=== PATIENT | female | born 1995 | race Caucasian/White ===

== ENCOUNTER 2017-07-28 02:55 | Emergency (ER) | payer SELFPAY ==
[2017-07-28] VITALS (12 sets, daily range): BP systolic 98–118; BP diastolic 44–72
[~2017-07-28] VITALS: Ht 165.1 cm; Wt 52.2 kg
--- NOTE | 2017-07-28 03:06 | Emergency Room Report ---
History of Present Illness General Chief Complaint: Altered Level of Consciousness Source: EMS (Reid Diggs DO) Present Illness HPI Patient was brought to the ER with agitation and bizarre behavior Patient is not answering any questions Patient continues to ramble including discussions regarding her family her mom Asking people to fetch her water And continues to talk about unassociated events History of present illness is significantly limited Patient was apparently at a convenience store also doing similar activity for about one hour after Police Department had picked her up patient continued to act erratic and was brought to the ER (Reid Diggs DO) Allergies: Coded Allergies: AVOCADO (Verified Allergy, Unknown, 07/28/17) BANANA (Verified Allergy, Unknown, 07/28/17) Patient History Limited by: medical condition Past Medical History: see triage record Pertinent Family History: unable to obtain Last Menstrual Period: unknown Now: No - unknown : 0 Para: 0 Reviewed Nursing Documentation: PMH: Agreed; PSxH: Agreed (Reid Diggs DO) Nursing Documentation-PMH Past Medical History Deferred: Pt Cognitively Impaired (Reid Diggs DO) Review of Systems All Other Systems: limited - Other than the ones mentioned in the history of present illness all others are reviewed however they do stay limited due to the patient's mental status (Reid Diggs DO) Physical Exam Vital Signs Date Time Temp Pulse Resp B/P (MAP) Pulse Ox O2 Delivery O2 Flow Rate FiO2 07/28/17 02:43 98.1 111 15 112/65 98 Room Air 98.1 Sp02 EP Interpretation: reviewed, normal General Appearance: mild distress Head: normocephalic, atraumatic Eyes: bilateral eye PERRL, bilateral eye EOMI ENT: hearing grossly normal, normal pharynx Neck: full range of motion, supple Respiratory: lungs clear, normal breath sounds Cardiovascular #1: regular rate, rhythm, no edema Gastrointestinal: non tender, soft Musculoskeletal: normal inspection Neurologic: alert, responsive, motor strength/tone normal Psychiatric: other - Patient appears acutely psychotic rambling thought Skin: normal color, no rash Lymphatic: no adenopathy (Reid Diggs DO) Medical Decision Making Diagnostic Impression: Primary Impression: Altered level of consciousness ER Course Multiple differentials considered Including but not limited to psychosis, alcohol, drug, psychiatric related Patient had blood work initiated Marijuana is positive given the patient's initial presentation Given the unknown past medical history along with her speech patient will have further psychiatric evaluation Labs Test 07/28/17 03:20 White Blood Count 8.0 K/UL (4.8-10.8) Red Blood Count 4.95 M/UL (4.20-5.40) Hemoglobin 15.0 G/DL (12.0-16.0) Hematocrit 46.0 % (37.0-47.0) Mean Corpuscular Volume 93 FL (80-99) Mean Corpuscular Hemoglobin 30.4 PG (27.0-31.0) Mean Corpuscular Hemoglobin Concent 32.6 G/DL (32.0-36.0) Red Cell Distribution Width 13.1 % (11.6-14.8) Platelet Count 280 K/UL (150-450) Mean Platelet Volume 6.3 FL (6.5-10.1) Neutrophils (%) (Auto) 63.5 % (45.0-75.0) Lymphocytes (%) (Auto) 23.7 % (20.0-45.0) Monocytes (%) (Auto) 8.3 % (1.0-10.0) Eosinophils (%) (Auto) 3.4 % (0.0-3.0) Basophils (%) (Auto) 1.1 % (0.0-2.0) Urine HCG, Qualitative Negative (NEGATIVE) Sodium Level 144 MMOL/L (136-145) Potassium Level 3.9 MMOL/L (3.5-5.1) Chloride Level 104 MMOL/L (98-107) Carbon Dioxide Level 24 MMOL/L (21-32) Anion Gap 16 mmol/L (5-15) Blood Urea Nitrogen 5 mg/dL (7-18) Creatinine 1.0 MG/DL (0.55-1.30) Estimat Glomerular Filtration Rate > 60 mL/min (>60) Glucose Level 95 MG/DL (74-106) Calcium Level 9.3 MG/DL (8.5-10.1) Total Bilirubin 0.4 MG/DL (0.2-1.0) Aspartate Amino Transf (AST/SGOT) 17 U/L (15-37) Alanine Aminotransferase (ALT/SGPT) 20 U/L (12-78) Alkaline Phosphatase 65 U/L (46-116) Total Protein 8.4 G/DL (6.4-8.2) Albumin 4.3 G/DL (3.4-5.0) Globulin 4.1 g/dL Albumin/Globulin Ratio 1.0 (1.0-2.7) Salicylates Level 5.4 ug/mL (2.8-20) Urine Opiates Screen Negative (NEGATIVE) Acetaminophen Level < 2 MCG/ML (10-30) Urine Barbiturates Screen Negative (NEGATIVE) Phencyclidine (PCP) Screen Negative (NEGATIVE) Urine Amphetamines Screen Negative (NEGATIVE) Urine Benzodiazepines Screen Negative (NEGATIVE) Urine Cocaine Screen Negative (NEGATIVE) Urine Marijuana (THC) Screen Positive (NEGATIVE) Serum Alcohol 11 mg/dL (Reid Diggs DO) ER Course Patient signed out to me by Dr Diggs On re-eval, still with bizarre behavior, thought process PET team from [place] came to ED, placed patient on 5150 hold [facility] have contacted multiple places for placement (CJ HADLEY M.D.) ER Course received signout 22 yo F with bizarre behavior, on 5150 medically clear pending placement has been sleeping comfortably during my shift (Angely Mares M.D.) Last Vital Signs Date Time Temp Pulse Resp B/P (MAP) Pulse Ox O2 Delivery O2 Flow Rate FiO2 07/28/17 02:43 98.1 111 15 112/65 98 Room Air 98.1 Status: improved (Reid Diggs DO) Status: improved (CJ HADLEY M.D.) Disposition: XFER TO PSYCH HOSP/UNIT Reid Diggs DO Jul 28, 2017 03:06 CJ HADLEY M.D. Jul 28, 2017 12:46 Angely Mares M.D. Jul 28, 2017 20:51
[2017-07-28] MEDS ORDERED: DiphenhydrAMINE 50mg/ml Inj IVP ONE (03:15)
[2017-07-28] MEDS ORDERED: LORazepam Inj 2mg/ml 1ml IV ONE (03:15)
[2017-07-28] MEDS ORDERED: Haloperidol 5mg/ml Inj IM ONE (03:15)
[2017-07-28 03:57] LABS: BASOPHILS % (AUTO) 1.1 % (0.0-2.0); EOSINOPHILS % (AUTO) 3.4 % (0.0-3.0); LYMPHOCYTES % (AUTO) 23.7 % (20.0-45.0); MEAN CORPUSCULAR VOLUME 93 FL (80-99); MONOCYTES % (AUTO) 8.3 % (1.0-10.0); NEUTROPHILS % (AUTO) 63.5 % (45.0-75.0); PLATELET COUNT 280 K/UL (150-450); RED BLOOD COUNT 4.95 M/UL (4.20-5.40); RED CELL DISTRIBUTION WIDTH 13.1 % (11.6-14.8)
[2017-07-28 04:08] LABS: ANION GAP 16 mmol/L (5-15); BLOOD UREA NITROGEN 5 mg/dL (7-18); CALCIUM 9.3 MG/DL (8.5-10.1); CARBON DIOXIDE 24 MMOL/L (21-32); CHLORIDE 104 MMOL/L (98-107); POTASSIUM 3.9 MMOL/L (3.5-5.1); SODIUM 144 MMOL/L (136-145)
[2017-07-28 04:13] LABS: ALANINE AMINOTRANSFERASE 20 U/L (12-78); ALBUMIN 4.3 G/DL (3.4-5.0); ALKALINE PHOSPHATASE 65 U/L (46-116); ASPARTATE AMINO TRANSFERASE 17 U/L (15-37); BILIRUBIN,TOTAL 0.4 MG/DL (0.2-1.0)
[2017-07-29 00:50] LABS: APPEARANCE,URINE CLEAR; BILIRUBIN, URINE NEGATIVE (NEGATIVE); GLUCOSE, URINE (UA) NEGATIVE (NEGATIVE); KETONES,URINE NEGATIVE (NEGATIVE); LEUKOCYTE ESTERASE ,URINE NEGATIVE (NEGATIVE); NITRITE,URINE NEGATIVE (NEGATIVE); PH,URINE 5 (4.5-8.0); PROTEIN,URINE NEGATIVE (NEGATIVE); UROBILINOGEN,URINE NORMAL MG/DL (0.0-1.0)
[2017-07-29 00:53] LABS: COLOR,URINE YELLOW
[2017-07-29 01:37] VITALS: BP 120/74
[2017-07-29 03:21] VITALS: BP 120/74
[2017-07-29 05:51] VITALS: BP 111/60
[2017-07-29 09:03] VITALS: BP 118/64
[2017-07-29] MEDS ORDERED: Haloperidol Decanoate 50mg Inj IM ONE (12:00)
[2017-07-29] MEDS ORDERED: RISPERDAL2 MG ORAL (12:50)
[2017-07-29 13:10] VITALS: BP 118/64
--- NOTE | 2017-07-29 23:25 | Consultation ---
History of Present Illness General Date patient seen: Jul 29, 2017 Chief Complaint: Altered Level of Consciousness Present Illness HPI 22 yo female who came to ER with agitation and bizarre behavior. The pt was on 5150 for GD. The pt has been uncooperative and stated that she has to get out of er and smoke. the pt was labile and delusional. the pt did not endorse si/ hi. the pt stated that she would like to discharged and was able to provide safe self care plan. the pt stated that she lives in [facility] with a friend. the pt agreed to take a long acting antipsychotic shot. the pt was able to cooperate more. the pt is not at imminent dts/dto Allergies: Coded Allergies: AVOCADO (Verified Allergy, Unknown, 07/28/17) BANANA (Verified Allergy, Unknown, 07/28/17) Medication History Scheduled Risperidone* (Risperdal*), 2 MG ORAL DAILY Patient History Limited by: medical condition History Provided By: Patient, Medical Record, PMD Healthcare decision maker Resuscitation status Advanced Directive on File Review of Systems Psychiatric: Reports: prior hx, anxiety, hallucinations Physical Exam General Appearance: no apparent distress, alert Neurologic: oriented x 3, responsive, depressed affect Last 24 Hour Vital Signs Date Time Temp Pulse Resp B/P (MAP) Pulse Ox O2 Delivery O2 Flow Rate FiO2 07/29/17 13:10 98.2 71 20 118/64 100 Room Air 98.2 07/29/17 09:03 98.2 71 20 118/64 100 Room Air 98.2 07/29/17 05:51 98.2 74 18 111/60 98 Room Air 98.2 07/29/17 03:21 97.6 82 18 120/74 98 Room Air 97.6 07/29/17 01:37 98.0 80 18 120/74 98 Room Air 98.0 Intake and Output 07/28/17 07/29/17 19:00 07:00 Output Total 0 ml Balance 0 ml Output Urine Total 0 ml Laboratory Tests Test 07/29/17 00:32 Urine Color Yellow Urine Appearance Clear Urine pH 5 (4.5-8.0) Urine Specific [place] 1.020 (1.005-1.035) Urine Protein Negative (NEGATIVE) Urine Glucose (UA) Negative (NEGATIVE) Urine Ketones Negative (NEGATIVE) Urine Occult Blood Negative (NEGATIVE) Urine Nitrite Negative (NEGATIVE) Urine Bilirubin Negative (NEGATIVE) Urine Urobilinogen Normal MG/DL (0.0-1.0) Urine Leukocyte Esterase Negative (NEGATIVE) Height (Feet): 5 Height (Inches): 5.00 Weight (Pounds): 115 Assessment/Plan Status: stable Assessment/Plan psychotic d/o' will lift the hold the pt will receive referrals. the pt was given a shot of haldol and script for Eliu Dupree M.D. Jul 29, 2017 23:25
== END 2017-07-29 13:10 ==
LOC: EDBD 02:55 → EMR 04:26
DX: R41.82 Altered mental status, unspecified (principal); Z91.018 Allergy to other foods
CPT/HCPCS: 36415; 80053; 80307; 81003; 81025; 85025; 96361; 96372; 96374; 96375; 99284; G0480; J1200; J1630; J1631; 80329